=== PATIENT | female | born 1955 | race Caucasian/White ===

== ENCOUNTER → 2017-04-27 | Outpatient (CLI) | payer OTHER | LOC: KOH-I 10:30 | DX: R10.12 Left upper quadrant pain (principal); R10.32 Left lower quadrant pain; E78.2 Mixed hyperlipidemia; I10 Essential (primary) hypertension; J20.9 Acute bronchitis, unspecified; K21.9 Gastro-esophageal reflux disease without esophagitis; K41.91 Unilateral femoral hernia, without obstruction or gangrene, recurrent; K51.50 Left sided colitis without complications; M15.8 Other polyosteoarthritis; M62.838 Other muscle spasm; M79.1 Myalgia; N13.30 Unspecified hydronephrosis; N28.1 Cyst of kidney, acquired; R23.8 Other skin changes; R31.29 Other microscopic hematuria; R63.4 Abnormal weight loss; R91.8 Other nonspecific abnormal finding of lung field; S23.41XS Sprain of ribs, sequela | CPT/HCPCS: 74178; Q9962 ==

== ENCOUNTER → 2021-01-05 | Outpatient (CLI) | payer OTHER ==
[2021-01-05 14:34] LABS: HEMOGLOBIN 15.3 gm/dl (12.3-15.3); RED BLOOD COUNT 5.67 M/UL (4.00-5.10); WHITE BLOOD COUNT 5.1 K/UL (4.5-11.0)
[2021-01-05 18:09] LABS: BUN/CREATININE RATIO 23 (0-10)
[2021-01-07 14:15] LABS: CHOLESTEROL, TOTAL 164 mg/dL (100-199); HDL SIZE 8.8 nm (>=9.2); HDL-C 49 mg/dL (>39); HDL-P (TOTAL) 37.8 umol/L (>=30.5); LARGE HDL-P 3.7 umol/L (>=4.8); LARGE VLDL-P 4.7 nmol/L (<=2.7); LDL SIZE 20.1 nm (>20.5); LDL SIZE 20.1 nm (>=20.8); LDL-C 94 mg/dL (0-99); LDL-P 1232 nmol/L (<1000); LP-IR SCORE 65 (<=45); SMALL LDL-P 808 nmol/L (<=527); TRIGLYCERIDES 120 mg/dL (0-149); VLDL SIZE 50.9 nm (<=46.6)
== END ==
LOC: LAB 13:48
PROVIDERS: Emergency Medicine
DX: I10 Essential (primary) hypertension (principal); E78.2 Mixed hyperlipidemia; R63.4 Abnormal weight loss
CPT/HCPCS: 36415; 80053; 83690; 84443; 84550; 85025

== ENCOUNTER → 2021-02-13 | Outpatient (CLI) | payer OTHER ==
[2021-02-14 09:13] LABS: RHEUMATOID ARTHRITIS FACTOR <10.0 IU/mL (0.0-13.9)
== END ==
LOC: LAB 12:42
PROVIDERS: Emergency Medicine
DX: M15.8 Other polyosteoarthritis (principal)
CPT/HCPCS: 36415; 85652; 86038; 86140; 86431

== ENCOUNTER → 2021-02-17 | Outpatient (CLI) | payer OTHER | LOC: KOH-I 12:30 | DX: R05 Cough (principal); J98.11 Atelectasis | CPT/HCPCS: 71046 ==

== ENCOUNTER → 2021-08-11 | Outpatient (CLI) | payer OTHER ==
[2021-08-11 12:51] LABS: HEMOGLOBIN 13.8 gm/dl (12.3-15.3); RED BLOOD COUNT 4.92 M/UL (4.00-5.10); WHITE BLOOD COUNT 5.2 K/UL (4.5-11.0)
[2021-08-11 13:21] LABS: BUN/CREATININE RATIO 22 (0-10)
== END ==
LOC: LAB 11:30
PROVIDERS: Emergency Medicine
DX: I10 Essential (primary) hypertension (principal); E78.2 Mixed hyperlipidemia; R31.29 Other microscopic hematuria; R10.30 Lower abdominal pain, unspecified; E03.8 Other specified hypothyroidism
CPT/HCPCS: 36415; 80053; 80061; 83704; 84443; 84550; 85025

== ENCOUNTER → 2021-12-08 | Outpatient (CLI) | payer OTHER ==
[2021-12-08 11:31] LABS: BUN/CREATININE RATIO 21 (0-10)
== END ==
LOC: LAB 10:50
PROVIDERS: Emergency Medicine
DX: I10 Essential (primary) hypertension (principal); E78.2 Mixed hyperlipidemia
CPT/HCPCS: 36415; 80048